=== PATIENT | male | born 1990 | race Hispanic/Latino ===

== ENCOUNTER 2018-03-03 00:21 | Inpatient (IN) | payer SELFPAY ==
[2018-03-03] VITALS (9 sets, daily range): BP systolic 111–119; BP diastolic 47–69
[~2018-03-03] VITALS: Ht 172.7 cm; Wt 118.6 kg
[2018-03-03] MEDS ORDERED: ASPIRIN 325 MG TABLET ONE (00:35)
[2018-03-03 00:38] LABS: BASOPHILS % (AUTO) 0.3 % (0.0-5.0); LYMPHOCYTES % (AUTO) 6.8 % (21.0-51.0); MEAN CORPUSCULAR HEMOGLOBIN 30.7 pg (27.0-33.0); MEAN CORPUSCULAR HGB CONC 35.2 g/dL (32.0-36.0); MEAN CORPUSCULAR VOLUME 87.1 fL (79-99); MONOCYTES % (AUTO) 0.9 % (3.0-13.0); PLATELET COUNT (AUTO) 156 K/uL (130-400); RED BLOOD CELL COUNT(AUTO) 5.39 MIL/uL (4.50-6.20); RED CELL DISTRIBUTION WIDTH 12.9 % (11.0-15.5); WHITE BLOOD COUNT (AUTO) 12.5 K/uL (4.8-10.8)
[2018-03-03 00:48] LABS: CREATININE 1.1 mg/dL (0.5-1.5); POTASSIUM 4.1 mmol/L (3.5-5.1)
[2018-03-03 00:51] LABS: INR 0.95 (0.85-1.15); PARTIAL THROMBOPLASTIN TIME 24.9 SEC (26.3-35.5)
[2018-03-03 01:02] LABS: BILIRUBIN,TOTAL 0.4 mg/dL (0.2-1.0); CREATINE KINASE MB 2.4 ng/mL (0.5-3.6); TOTAL PROTEIN, SERUM 8.2 g/dL (6.0-8.3)
[2018-03-03] MEDS ORDERED: SODIUM CHLORIDE 0.9% 1000ML 1,000 ML IV ONE (01:30)
[2018-03-03 01:43] LABS: AMPHET/METH SCREEN,URINE NEGATIVE (NEGATIVE); BARBITURATE SCREEN, URINE NEGATIVE (NEGATIVE); BENZODIAZEPINES SCREEN,URINE NEGATIVE (NEGATIVE); CANNABINOID SCREEN,URINE NEGATIVE (NEGATIVE); COCAINE SCREEN,URINE NEGATIVE (NEGATIVE); OPIATE SCREEN,URINE NEGATIVE (NEGATIVE); PHENCYCLIDINE SCREEN,URINE NEGATIVE (NEGATIVE)
[2018-03-03] MEDS ORDERED: NITROGLYCERIN 1GM/1 INCH PACKET TD ONE (03:43)
[2018-03-03 06:02] LABS: HEMOGLOBIN A1C 5.3 % (4.0-6.0)
[2018-03-03] MEDS: FAMOTIDINE 20MG TAB 20 MG TAB PO SCH (06:15)
[2018-03-03] MEDS ORDERED: NITROGLYCERIN 0.4 MG SL TAB SL PRN (06:15)
[2018-03-03 06:17] LABS: THYROID STIMULATING HORMONE 0.82 uIU/mL (0.36-3.74)
[2018-03-03] MEDS: INSULIN HUMULIN R 100 UNIT/ML 3ML SQ SCH ×3 (07:30→21:00)
[2018-03-03] MEDS ORDERED: ENOXAPARIN SODIUM 40 MG/0.4 ML SYRINGE SQ ONE (08:28)
[2018-03-03] MEDS ORDERED: HYDROCODONE/ACETAMINOPHEN 7.5/325 MG TAB ONE (08:34)
[2018-03-03] MEDS ORDERED: ASPIRIN 325MG EC TAB 325 MG TABLET.DR PO SCH (09:00)
[2018-03-03] MEDS: ENOXAPARIN SODIUM 40 MG/0.4 ML SYRINGE SQ SCH (09:00)
[2018-03-03] MEDS: ASPIRIN 325MG EC TAB 325 MG TABLET.DR PO SCH (09:00)
[2018-03-03] MEDS ORDERED: FAMOTIDINE 20MG TAB 20 MG TAB ONE (09:28)
[2018-03-03] MEDS ORDERED: IOPAMIDOL-370 100 ML VIAL IV ONE (15:06)
[2018-03-03] MEDS ORDERED: NITROGLYCERIN 5 MG/ML 10 ML VIAL IV ONE (15:06)
[2018-03-03] MEDS ORDERED: ISOVUE-370 50ML VIAL IV ONE (15:06)
[2018-03-03] MEDS ORDERED: BIVALIRUDIN 250 MG/VIAL IV ONE (15:06)
[2018-03-03] MEDS ORDERED: LIDOCAINE HCL 2% 20ML ONE (15:06)
[2018-03-03] MEDS ORDERED: MIDAZOLAM HCL 1 MG/ML 2ML VIAL ONE (15:47)
[2018-03-03] MEDS ORDERED: FUROSEMIDE 20 MG TABLET PO SCH (17:30)
[2018-03-03] MEDS: METOPROLOL TARTRATE 50 MG TAB PO SCH (20:14)
[2018-03-03] MEDS: ACETAMINOPHEN EXTRA STRENGTH 500 MG TABLET PO PRN (21:11)
[2018-03-04 00:17] VITALS: BP 105/52
[2018-03-04 03:50] LABS: MEAN CORPUSCULAR HEMOGLOBIN 30.7 pg (27.0-33.0); MEAN CORPUSCULAR HGB CONC 34.7 g/dL (32.0-36.0); MEAN CORPUSCULAR VOLUME 88.4 fL (79-99); PLATELET COUNT (AUTO) 124 K/uL (130-400); RED BLOOD CELL COUNT(AUTO) 4.86 MIL/uL (4.50-6.20); RED CELL DISTRIBUTION WIDTH 12.9 % (11.0-15.5); WHITE BLOOD COUNT (AUTO) 14.3 K/uL (4.8-10.8)
[2018-03-04 04:07] LABS: CREATININE 0.9 mg/dL (0.5-1.5); POTASSIUM 3.4 mmol/L (3.5-5.1)
[2018-03-04 04:08] LABS: B-TYPE NATRIURETIC PEPTIDE 104 pg/mL (0-100)
[2018-03-04 04:23] VITALS: BP 114/55
[2018-03-04] MEDS: ACETAMINOPHEN EXTRA STRENGTH 500 MG TABLET PO PRN (04:33)
[2018-03-04] MEDS: FAMOTIDINE 20MG TAB 20 MG TAB PO SCH (06:21)
[2018-03-04] MEDS: INSULIN HUMULIN R 100 UNIT/ML 3ML SQ SCH ×2 (06:37→11:30)
[2018-03-04 07:00] VITALS: BP 115/62
[2018-03-04] MEDS: METOPROLOL TARTRATE 50 MG TAB PO SCH (09:01)
[2018-03-04] MEDS: ASPIRIN 325MG EC TAB 325 MG TABLET.DR PO SCH (09:01)
[2018-03-04] MEDS ORDERED: AEC81 PO (09:12)
[2018-03-04] MEDS ORDERED: CLOP75TA32 PO (09:12)
[2018-03-04] MEDS ORDERED: METO50 PO (09:12)
[2018-03-04] MEDS: ENOXAPARIN SODIUM 40 MG/0.4 ML SYRINGE SQ SCH (09:19)
[2018-03-04] MEDS ORDERED: LORAZEPAM 2 MG/ML 1 ML VIAL IVP SCH (10:15)
[2018-03-04 11:00] VITALS: BP 108/61
== END 2018-03-04 15:55 | disposition home or self-care (01) | DRG 281 ==
LOC: EDH 00:21 → EDHIP 00:22 → 2AH 14:24
PROVIDERS: ADMIT Internal Medicine Nephrology; ATTEND Internal Medicine Nephrology
PROC: 4A023N8 Measurement of Cardiac Sampling and Pressure, Bilateral, Percutaneous Approach (ICD-10-PCS; principal; 2018-03-03)
PROC: B41F1ZZ Fluoroscopy of Right Lower Extremity Arteries using Low Osmolar Contrast (ICD-10-PCS; 2018-03-03)
PROC: B2161ZZ Fluoroscopy of Right and Left Heart using Low Osmolar Contrast (ICD-10-PCS; 2018-03-03)
PROC: B2151ZZ Fluoroscopy of Left Heart using Low Osmolar Contrast (ICD-10-PCS; 2018-03-03)
PROC: B2111ZZ Fluoroscopy of Multiple Coronary Arteries using Low Osmolar Contrast (ICD-10-PCS; 2018-03-03)
DX: I21.4 Non-ST elevation (NSTEMI) myocardial infarction (principal); I42.1 Obstructive hypertrophic cardiomyopathy; Q24.5 Malformation of coronary vessels; E66.9 Obesity, unspecified; F17.210 Nicotine dependence, cigarettes, uncomplicated; F41.9 Anxiety disorder, unspecified; I34.0 Nonrheumatic mitral (valve) insufficiency; I49.3 Ventricular premature depolarization; R73.9 Hyperglycemia, unspecified; Z68.39 Body mass index [BMI] 39.0-39.9, adult; K04.7 Periapical abscess without sinus; Z83.3 Family history of diabetes mellitus; Z82.49 Family history of ischemic heart disease and other diseases of the circulatory system
CPT/HCPCS: 36415; 70450; 70551; 71046; 80048; 80053; 80061; 80305; 82550; 82553; 82948; 83036; 83874; 83880; 84443; 84484; 85025; 85027; 85610; 85730; 86701; 87390; 93005; 93306; 93460; 99152; 99153; C1887; C1893; C1894; J0583; J1644; J1650; J2060; J2250; J3490; J7030; Q9967